=== PATIENT | male | born 1990 | race Caucasian/White ===

== ENCOUNTER 2016-10-02 08:57 | Day surgery (SDC) | payer BC ==
[~2016-10-02] VITALS: Ht 170.2 cm; Wt 99.5 kg
[2016-10-02] VITALS (16 sets, daily range): BP systolic 101–129; BP diastolic 59–79; PULSE 50–86; RESP 14–19; Ht 170.2 cm; Wt 99.5 kg
[2016-10-02] MEDS ORDERED: SOD CHLORIDE 0.9% 1,000 ML IV ONE (09:30)
[2016-10-02] MEDS ORDERED: CEFAZOLIN 2 GM/50 ML (PMX) 50 ML IVPB ONE (09:30)
[2016-10-02] MEDS ORDERED: ARIP300S IM (10:17)
[2016-10-02] MEDS ORDERED: BUPIVACAINE 0.25% (MPF) 30 ML INJ ONE (10:31)
[2016-10-02] MEDS ORDERED: POLYMYXIN/BACITRACIN 1L IRRIG ONE ×2 (10:41→10:53)
[2016-10-02] MEDS ORDERED: PROPOFOL 20 ML ONE (10:44)
[2016-10-02] MEDS ORDERED: SUCCINYLCHOLINE CHLORIDE 100 MG/5 ML SYG IV ONE (10:44)
[2016-10-02] MEDS ORDERED: FENTAnyl 50 MCG/ML VIAL ONE (10:44)
[2016-10-02] MEDS ORDERED: ROCURONIUM 50 MG INJ ONE (10:44)
[2016-10-02] MEDS ORDERED: MIDAZOLAM 1 MG/ML 2 ML INJ ONE (10:44)
[2016-10-02] MEDS ORDERED: LIDOCAINE 2% (SDV) 5 ML INJ ONE (10:44)
[2016-10-02] MEDS ORDERED: ONDANSETRON 4 MG INJ ONE (11:10)
[2016-10-02] MEDS ORDERED: CEFAZOLIN 1 GM INJ ONE (11:10)
[2016-10-02] MEDS ORDERED: DEXAMETHASONE 4 MG/ML 1 ML INJ ONE (11:10)
[2016-10-02] MEDS ORDERED: NEOSTIGMINE 3 MG/3 ML SYRINGE ONE ×2 (11:13→11:36)
[2016-10-02] MEDS ORDERED: GLYCOPYRROLATE 0.4 MG INJ ONE (11:13)
[2016-10-02] MEDS ORDERED: KETOROLAC 30 MG INJ ONE (11:33)
--- NOTE | 2016-10-02 11:59 | OPR ---
Date/Time of Note Date/Time of Note DATE: 10/02/16 TIME: 11:58 Operative Report Procedure Date: Oct 02, 2016 Preoperative Diagnosis incarcerated ventral hernia Postoperative Diagnosis incarcerated ventral hernia Operation Performed lap incarcerated ventral hernia repair with mesh Surgeon: Peter STOVER Quality Internship: STEPHANIE LUEVANO MD Anesthesia: general Peter STOVER Oct 02, 2016 11:59
[2016-10-02] MEDS ORDERED: HYDROCODONE/APAP (5/325) TAB PO ONE (12:00)
--- NOTE | 2016-10-02 12:02 | OPR ---
DATE OF OPERATION: 10/02/2016 INDICATION: This is a 26-year-old male with an incarcerated ventral hernia. He requests surgical repair. Risks, alternatives, benefits, and personnel were discussed with the patient. The patient expresses understanding and consents to the operation. PREOPERATIVE DIAGNOSIS: Incarcerated ventral hernia. POSTOPERATIVE DIAGNOSIS: Incarcerated ventral hernia. OPERATION PERFORMED: Laparoscopic incarcerated ventral hernia repair with 10 x [address] mesh. SURGEON: Waldo Gallegos MD [employer] Driver: vladislav long SPECIMEN: None. COMPLICATIONS: None. ANESTHESIA: General. PROCEDURE: The patient was taken to the OR and prepped and draped in the usual sterile fashion. Surgical timeout was performed. IV antibiotics were given. Left upper quadrant 5 mm transverse incision is made with a 15 blade. Using a 5 mm optical trocar, optical entry was performed. Pneumoperitoneum was established. Left flank 12 mm optical trocar and left lower quadrant 5 mm optical trocars are placed under direct visualization. Upon initial inspection , there are incarcerated contents to the ventral hernia. This was reduced laparoscopically using laparoscopic Harmonic. This incarcerated material was excised. The defect was identified and closed with interrupted #1 Prolene using Endo Close and laparoscopic techniques. There was good hemostasis. Underlay mesh is secured in place with approximately 4 to 5 cm of coverage in all directions. There was good hemostasis. The mesh was secured with SecureStrap. Ports were removed under direct visualization. Skin was closed using skin dona. Local anesthesia was injected. Dry dressings were applied. Dictated By: WALDO FINLEY/JIN Conf#: [id number] DID#: [id number]
[2016-10-02] MEDS ORDERED: PROCHLORPERAZINE 10 MG INJ IV PRN (12:30)
[2016-10-02] MEDS ORDERED: MEPERIDINE 25 MG INJ IV PRN (12:30)
[2016-10-02] MEDS ORDERED: ONDANSETRON 4 MG INJ IV PRN (12:30)
[2016-10-02] MEDS ORDERED: HYDROmorphONE (0.2 MG/ML) 10ML SYG IV PRN ×3 (12:30)
[2016-10-02] MEDS ORDERED: DIPHENHYDRAMINE 50 MG INJ IV PRN (12:30)
[2016-10-02] MEDS ORDERED: OXYCODONE/ACETAMINOPHEN (5/325) TAB PO PRN (12:30)
[2016-10-02] MEDS ORDERED: FENTAnyl 50 MCG/ML VIAL IV PRN (12:30)
== END 2016-10-02 13:55 | disposition home or self-care (01) ==
LOC: SDS 08:57
PROVIDERS: ATTEND Surgery
DX: K43.6 Other and unspecified ventral hernia with obstruction, without gangrene (principal)
CPT/HCPCS: 49653; C1781; J0330; J0690; J1100; J1170; J2175; J2250; J2405; J2710; J3010; Z7512; Z7610; J1885